=== PATIENT | female | born 1960 | race Caucasian/White ===

== ENCOUNTER → 2018-07-03 | Outpatient (CLI) | payer OTHER ==
--- NOTE | 2018-07-03 13:59 | BD ---
EXAMINATION TYPE: Axial Bone Density DATE OF EXAM: 07/03/2018 COMPARISON: NONE CLINICAL HISTORY: Height: 5 FT 2 1/4 IN Weight: 167 FRAX RISK QUESTIONS: History of Fracture in Adulthood: YES RISK FACTORS HISTORY OF: Active: YES Postmenopausal woman: AGE 49 MEDICATIONS: Thyroid Medications: YES Which medication: LEVOTHYROXINE How Lon YEARS Additional Medications: LEVOTHYROXINE, OMEPRAZOLE, RAMAPRIL, METOPROLOL, ATORVASTATIN Additional History: EXAM MEASUREMENTS: Bone mineral densitometry was performed using the [employer] [facility]. Bone mineral density as measured about the Lumbar spine is: ----- L1-L4(G/cm2): 0.983 T Score Values are as follows: ----- L2: -1.4 ----- L3: -1.0 ----- L4: -1.9 ----- L1-L4: -1.6 BASELINE Bone mineral density about the R hip (g/cm2): 0.843 Bone mineral density about the L hip (g/cm2): 0.916 T Score values are as follows: -----R Neck: -1.4 -----L Neck: -0.9 -----R Total: -1.0 -----L Total: 0.0 BASELINE IMPRESSION: Osteopenia (T Score between -2.5 and -1) at the femoral neck level in right hip and overall in the lo w back. There is slightly increased risk of fracture and the patient may be considered for treatment. Re-Screen 2-5 years. NOTE: T-SCORE=SD OF THE YOUNG ADULT MEAN.
--- NOTE | 2018-07-04 10:48 | MM ---
Reason for exam: screening (asymptomatic). Last mammogram was performed 2 years ago. History: Patient is postmenopausal and had first child at age 34. Family history of breast cancer in mother at age 54 and breast cancer in maternal aunt. Physical Findings: A clinical breast exam by your physician is recommended on an annual basis and results should be correlated with mammographic findings. MG 3D Screening Mammo W/Cad Bilateral CC and MLO view(s) were taken. Technologist: RT Tamir (R)(M) Prior study comparison: July 09, 2016, bilateral MG 3d screening mammo w/cad. May 13, 2015, bilateral MG screening mammo w CAD. There are scattered fibroglandular densities. There is no discrete abnormality. ASSESSMENT: Negative, BI-RAD 1 RECOMMENDATION: Routine screening mammogram of both breasts in 1 year.
== END | disposition home or self-care (01) ==
LOC: RADMAMWWP 09:24
PROVIDERS: ATTEND Family Medicine
DX: Z12.31 Encounter for screening mammogram for malignant neoplasm of breast (principal); M85.851 Other specified disorders of bone density and structure, right thigh; M85.88 Other specified disorders of bone density and structure, other site; Z80.3 Family history of malignant neoplasm of breast; Z78.0 Asymptomatic menopausal state
CPT/HCPCS: 77063; 77067; 77080

== ENCOUNTER → 2018-12-19 | Outpatient (CLI) | payer OTHER ==
--- NOTE | 2018-12-19 19:10 | XR ---
PROCEDURE: XR shoulder complete RT - 3V DATE AND TIME: 12/19/2018 6:15 PM CLINICAL INDICATION: PHH; S40.011A Contusion of right shoulder S43.401A spra TECHNIQUE: Department protocol COMPARISON: None FINDINGS: There is no fracture or malalignment. The soft tissues are unremarkable. IMPRESSION: NO ACUTE PROCESS.
== END | disposition home or self-care (01) ==
LOC: RADXRMAIN 17:59
PROVIDERS: ATTEND Emergency Medicine
DX: S43.401A Unspecified sprain of right shoulder joint, initial encounter (principal); S40.011A Contusion of right shoulder, initial encounter

== ENCOUNTER → 2018-12-26 | Outpatient (CLI) | payer OTHER ==
--- NOTE | 2018-12-26 16:22 | MR ---
EXAMINATION TYPE: MR shoulder RT wo con DATE OF EXAM: 12/26/2018 COMPARISON: Plain films to 04/02/2019 HISTORY: Contusion rt shoulder, rt shoulder pain TECHNIQUE: Multiplanar, multisequence imaging of the right shoulder is performed without contrast. FINDINGS: Rotator Cuff: Some minimal subacromial bursal fluid is present. Small perforation of the distal supra spinatus tendon is not excluded. No complete tear of the supraspinatus tendon is evident. No muscle o r tendon retraction is evident. Remaining rotator cuff tendons appear intact. Acromioclavicular Joint: There is hypertrophy present directed superiorly. There is downward sloping acromion which can contribute to impingement syndrome. There may be some mild narrowing of the acromi al humeral joint space. Glenohumeral Joint: Some narrowing may be present compatible some osteoarthritic degenerative change. Labrum: The labrum appears grossly intact given limitation of non-arthrogram study. Biceps Tendon: The long head of biceps is in normal location within bicipital groove. Small amount of fluid is adjacent to the long head of the biceps tendon. This could reflect some mild tendinosis. Bone marrow signal: No focal abnormal marrow signal is appreciated. Other: No additional significant abnormality is appreciated. Small amount of fluid is present within the joint space. IMPRESSION: Moderate tendinosis of the supraspinatus tendon. Small perforation is not excluded. 2. Osteoarthritic degenerative change glenohumeral junction. 3. Minimal joint fluid greater than physiologic. 4. Downward sloping acromion which can contribute to impingement syndrome. 5. Mild tendinosis of the long head of the biceps tendon.
== END ==
LOC: RADMRIMAIN 08:09
PROVIDERS: ATTEND Emergency Medicine
DX: M75.81 Other shoulder lesions, right shoulder (principal); M19.011 Primary osteoarthritis, right shoulder; M75.21 Bicipital tendinitis, right shoulder

== ENCOUNTER 2019-01-16 09:14 | Day surgery (SDC) | payer OTHER ==
[2019-01-10 11:32] VITALS: BMI 29.8
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
[~2019-01-16 09:14] MED LIST: DEXAMETHASONE SOD PHOSPHATE 10 MG/ML 1 ML VIAL IV ONE; LACTATED RINGERS 1,000 ML IV SCH; LIDOCAINE 1% 20 ML VIAL (10MG/ML) FOR IV START INTRADERMA PRN; MIDAZOLAM 2 MG/2 ML VIAL IV PRN; ONDANSETRON 4 MG/2 ML VIAL IVP ONE; SCOPOLAMINE 1.5MG/72HR PATCH TRANSDERM ONE; ceFAZolin IN SWFI 2 GM/20 ML SYRINGE IVP ONE
[2019-01-16 10:07] VITALS: TEMP 98.2
[2019-01-16] MEDS ORDERED: BUPIVACAINE (PF) 0.25% 30 ML VIAL ONE (10:30)
[2019-01-16] MEDS ORDERED: MIDAZOLAM 2 MG/2 ML VIAL ONE (10:30)
[2019-01-16] MEDS ORDERED: methylPREDNISolone ACETATE 80 MG/ML 1 ML VIAL ONE (10:30)
[2019-01-16] MEDS ORDERED: PROPOFOL 10 MG/ML 20 ML VIAL IV ONE (10:30)
[2019-01-16] MEDS ORDERED: fentaNYL (PF) 50 MCG/ML 2 ML AMP ONE (10:30)
--- NOTE | 2019-01-16 10:40 | P.OP ---
Date of Procedure: 01/16/19 Preoperative Diagnosis: Right shoulder adhesive capsulitis Postoperative Diagnosis: Same Procedure(s) Performed: Manipulation under anesthesia right shoulder with subacromial cortisone injection Anesthesia: MAC Surgeon: Pieter Berry Estimated Blood Loss (ml): 0 Pathology: none sent Condition: stable Disposition: PACU Indications for Procedure: The patient's a 58-year-old female who presents with right shoulder pain and stiffness and clinically had evidence of significant adhesive capsulitis. A discussion of the risks and benefits of manipulation under anesthesia with a subacromial cortisone injection was discussed. Informed consent was obtained. Specific risks of this procedure to include fracture, dislocation, possible recurrence of stiffness, and possible need for subsequent procedures was discussed. Operative Findings: As below Description of Procedure: The patient was brought to the recovery room, and after induction of IV sedation the right shoulder was gently manipulated. First with the arm at side , I obtained full external rotation. Moderate adhesions were encountered. I then obtained full forward elevation. Again there were moderate adhesions encountered. I felt that adequate catholic of motion at this point. The posterior shoulder was prepped with ChloraPrep. 80 mg of methylprednisolone along with 5 mL of quarter percent plain Marcaine was injected to the subacromial space with a spinal needle. The patient was then monitored until fully awake. No complications were incurred. There was no blood loss.
[2019-01-16] MEDS ORDERED: KETOROLAC 30 MG/ML 1 ML VIAL IVP ONE (10:50)
[2019-01-16] MEDS: HYDROmorphone 0.5 MG/0.5 ML SYRINGE IVP PRN ×2 (10:50→10:58)
[2019-01-16] MEDS: fentaNYL (PF) 50 MCG/ML 2 ML AMP IVP ONE ×2 (10:55→11:01)
[2019-01-16] MEDS ORDERED: ENALAPRILAT 1.25 MG/ML 1 ML VIAL IVP ONE (11:05)
[2019-01-16] MEDS ORDERED: IV FLUID CONTINUATION 1,000 ML IV ONE (11:42)
[2019-01-16] MEDS ORDERED: HYDROcodone/APAP 5-325MG 1 EACH TAB PO ONE (12:16)
[2019-01-16 13:32] VITALS: BP 141/90; PULSE 64; RESP 18
[2019-01-16] MEDS ORDERED: ONDANSETRON ODT 4 MG TAB PO ONE (13:55)
== END 2019-01-16 14:00 | disposition home or self-care (01) ==
LOC: OR 09:14
PROVIDERS: ATTEND Orthopaedic Surgery
DX: M75.01 Adhesive capsulitis of right shoulder (principal); I10 Essential (primary) hypertension; Z79.899 Other long term (current) drug therapy; Z88.0 Allergy status to penicillin; M75.81 Other shoulder lesions, right shoulder; Z87.891 Personal history of nicotine dependence
CPT/HCPCS: 23700; 20610; J2250; J1040; J1100; J2405; J3010; J1885; J2704; J1170

== ENCOUNTER → 2019-06-19 | Outpatient (CLI) | payer OTHER ==
--- NOTE | 2019-06-19 20:45 | CONS ---
CONSULTATION REASON FOR CONSULTATION: Sleep apnea. This is a pleasant 58-year-old female patient of [place] descent coming in to be investigated for sleep apnea. Recently during camping trips with her girl friend the patient has been told that she has been snoring loudly and she has been witnessed to have apneas at nighttime. She endorses the fact that she would wake up tired during the day despite averaging around 7 hours of sleep. She goes to bed around 11 p.m., wakes up at 6 a.m. in the morning, and sometimes she will sleep until 8:30 a.m., especially on weekends. 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 Nevertheless, waking up is quite hard for her and sometimes she can easily hit the snooze button and sleep a few hours more. Despite all this, she is feeling excessively fatigued and somewhat sleepy. Her current weight is stable, around 160. She drinks a cup of coffee during the day. No history of substance abuse. No history of alcoholism. No recent weight gain. No heartburn. No sleep paralysis. No hallucinations. No cataplexy. No history of any motor vehicle accident because of feeling drowsy or sleepy. PAST MEDICAL HISTORY: 1. History of atrial fibrillation back in 2016. Currently she is back to normal sinus rhythm. 2. Hyperlipidemia. 3. History of diverticulosis, post colectomy. 4. History of gastric ulcer. SURGICAL HISTORY: Surgical history includes: 1. Colectomy. 2. Oophorectomy. 3. D&C. DRUG ALLERGIES: PENICILLIN. OUTPATIENT MEDICATION LIST: Outpatient medication list includes: 1. Ramipril 5 mg p.o. daily. 2. Lipitor 20 mg p.o. daily. 3. Omeprazole 40 mg p.o. daily. 4. Oxybutynin 5 mg p.o. daily. SOCIAL HISTORY: The patient is an an ex-smoker. Drinks alcohol socially. No history of IV drugs. No history of substance abuse. FAMILY HISTORY: Father had excessive sleepiness. She thinks he had narcolepsy, although this was not officially diagnosed, as her father used to live in [place]. Mother also from complications of AUTOMOBILE SALES REPRESENTATIVE hemorrhage; she had strokes and she had carotid artery disease and she had hyperlipidemia and breast cancer. She had also a brain aneurysm. REVIEW OF SYSTEMS: Fourteen-point review of systems was done. Positive findings are all mentioned above in the history of present illness. She endorses snoring, apneas and grinding of the teeth and some restlessness at nighttime. She denies having any nocturia. Denies having any sleepwalking. No anxiety or panic attacks. No palpitations or chest pain or heartburn or nausea or vomiting or any form of altered mentation. No major issues with memory and concentration. No depression. No other psych history such as panic or PTSD or bipolar. No frequent falls or wounds. PHYSICAL EXAMINATION: VITAL SIGNS: BP is 139/92, pulse 82, respirations 16, temperature 99.1, saturation 96% on room air. Height is 5 feet 10 inches, weight 161, BMI 29.4. Neck size 13-1/2 inches. GENERAL APPEARANCE: Calm, comfortable. HEAD: Atraumatic, normocephalic. NECK: Supple. There is no JVD. No goiter or neck mass. Mallampati class IV. LUNGS: Clear to auscultation. HEART: Heart sounds are regular rate and rhythm. Normal S1, S2. No S3, S4. No murmurs. ABDOMEN: Soft, nontender. No organomegaly. EXTREMITIES: No edema. No cyanosis or clubbing. NEUROLOGIC: The patient is alert and oriented x3. There are no focal neurological deficits. PSYCHIATRY: There is no anxiety or depression. IMPRESSION: 1. Hypersomnia, under investigation. Consider obstructive sleep apnea based on history of snoring and witnessed apneas. 2. Mallampati class IV. 3. History of atrial fibrillation. Current rhythm is sinus. 4. Hyperlipidemia. 5. History of gastric ulcer. 6. Diverticulosis with previous history of colectomy. 7. History of acid reflux. PLAN: 1. Proceed with a screening polysomnogram to investigate this patient for sleep breathing disorder. 2. Encourage weight loss. 3. Sleep hygiene measures need to be further optimized, and the patient was given the appropriate recommendations. 4. Will continue to follow. MMODL / IJN: [id number] /
== END | disposition home or self-care (01) ==
LOC: SLEEP 15:45
PROVIDERS: ATTEND Internal Medicine Critical Care Medicine
DX: G47.10 Hypersomnia, unspecified (principal); E78.5 Hyperlipidemia, unspecified; Z87.891 Personal history of nicotine dependence; Z87.11 Personal history of peptic ulcer disease; Z86.79 Personal history of other diseases of the circulatory system; Z79.891 Long term (current) use of opiate analgesic; Z88.0 Allergy status to penicillin; Z90.49 Acquired absence of other specified parts of digestive tract
CPT/HCPCS: 99211

== ENCOUNTER → 2020-01-29 | Outpatient (CLI) | payer OTHER ==
--- NOTE | 2020-01-29 18:28 | PN ---
PROGRESS NOTE Roro is 58, coming in for a compliance check regarding obstructive sleep apnea. She has severe LORENE with an AHI of 33. Currently she is on CPAP. My recommendation was to start the patient on CPAP pressure of 12 cm of water and I noticed that she was started on a CPAP pressure of 8 cm of water. She is benefitting all the benefit is not absolute. Based on the compliance data, she has been averaging around 6.7 hours of CPAP use per night with CPAP use of more than 4 hours, achieving 27/30. Her leak is at 5 L/minute and AHI is down to 4. She feels that the pressure itself is somewhat low and she has an AirFit small size F30 fullface mask. REVIEW OF SYSTEMS: Fourteen-point review of system was done. Positive findings are mentioned above in history of present illness. Overall, she is benefitting from the treatment. She has less somnolent and sleepy. She has no snoring. She is waking up more alert and awake during the day. Her Anthon score is currently down to 2. The rest of the review of systems is essentially negative for now. PHYSICAL EXAMINATION: Her current vitals, temperature 97.8, pulse is 80, respirations 16, and weight is 161. Height is 5 feet 2 inches. General appearance: Calm and comfortable, no acute distress. Head is atraumatic, normocephalic. NECK: Supple. No JVD. No goiter. No neck mass. LUNGS: Clear to auscultation. HEART: Heart sounds are regular rate and rhythm. Normal S1, S2. No S3. No murmurs. ABDOMEN: Soft, nontender. No organomegaly. EXTREMITIES: No edema. No cyanosis or clubbing. NEUROLOGIC: Awake and alert. No focal neurological deficits. IMPRESSION: 1. Severe obstructive sleep apnea with an AHI of 33, currently on CPAP at a pressure of 8. 2. Chronic hypersomnia, improved. 3. Snoring, recovered. 4. Hypertension. 5. Hyperlipidemia. 6. PAF. 7. Diverticulosis. 8. Gastric cancer. PLAN: 1. I think there is a discrepancy between our prescription and the belt machine operator. I am going to increase the CPAP pressure up to 11 cm of water with a C-flex of 3. 2. I offered a medium-size AirFit F30 fullface mask. 3. Encourage continuing the CPAP therapy and the patient will see me back in a year's time in followup, earlier if needed. MMWYATTL / IJN: [id number] /
== END | disposition home or self-care (01) ==
LOC: SLEEP 15:47
PROVIDERS: ATTEND Internal Medicine Critical Care Medicine
DX: G47.33 Obstructive sleep apnea (adult) (pediatric) (principal); I10 Essential (primary) hypertension; E78.5 Hyperlipidemia, unspecified; K57.90 Diverticulosis of intestine, part unspecified, without perforation or abscess without bleeding; C16.9 Malignant neoplasm of stomach, unspecified; I48.0 Paroxysmal atrial fibrillation; Z99.89 Dependence on other enabling machines and devices

== ENCOUNTER 2020-07-23 13:07 | Emergency (ER) | payer OTHER ==
[2020-07-23 13:18] VITALS: TEMP 98.5
[2020-07-23] MEDS ORDERED: LIDOCAINE 1% INJ 10MG/ML (20 ML MDV) SQ ONE (13:55)
[2020-07-23] MEDS ORDERED: IBUPROFEN 600 MG TAB PO STA (14:03)
[2020-07-23] MEDS ORDERED: DIPH,PERTUS(ACELL)TETVAC-LF 0.5 ML VIAL IM ONE (14:03)
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
[2020-07-23 15:37] VITALS: BP 134/94; PULSE 84; RESP 16
== END 2020-07-23 14:50 | disposition home or self-care (01) ==
LOC: EC 13:07
DX: S01.511A Laceration without foreign body of lip, initial encounter (principal); I10 Essential (primary) hypertension; Z79.899 Other long term (current) drug therapy; Z88.0 Allergy status to penicillin; Z23 Encounter for immunization; Z87.891 Personal history of nicotine dependence; W51.XXXA Accidental striking against or bumped into by another person, initial encounter; Y92.219 Unspecified school as the place of occurrence of the external cause
CPT/HCPCS: 90471; 90715; 99282

== ENCOUNTER → 2020-10-28 | Outpatient (CLI) | payer OTHER ==
--- NOTE | 2020-10-28 07:51 | US ---
EXAMINATION TYPE: US kidneys/renal and bladder DATE OF EXAM: 10/28/2020 COMPARISON: NONE CLINICAL HISTORY: N39.0 UTI. Pt states recurrent UTI's EXAM MEASUREMENTS: Right Kidney: 11.4 x 5.4 x 5.2 cm Left Kidney: 11.6 x 5.1 x 4.8 cm Right Kidney: Mildly dilated renal pelvis, otherwise appeared wnl Left Kidney: Mildly dilated renal pelvis, otherwise appeared wnl Bladder: wnl Bilateral Jets seen: Yes IMPRESSION: Normal renal ultrasound
--- NOTE | 2020-10-28 13:33 | MM ---
Reason for exam: screening (asymptomatic). Last mammogram was performed 2 years and 4 months ago. History: Patient is postmenopausal and had first child at age 34. Family history of breast cancer in mother at age 54 and breast cancer in maternal aunt. Physical Findings: A clinical breast exam by your physician is recommended on an annual basis and results should be correlated with mammographic findings. MG 3D Screening Mammo W/Cad Bilateral CC and MLO view(s) were taken. Prior study comparison: July 03, 2018, bilateral MG 3d screening mammo w/cad. July 09, 2016, bilateral MG 3d screening mammo w/cad. There are scattered fibroglandular densities. There is no discrete abnormality. Benign bilateral axillary lymph nodes demonstrated. ASSESSMENT: Negative, BI-RAD 1 RECOMMENDATION: Routine screening mammogram of both breasts in 1 year.
--- NOTE | 2020-10-28 15:44 | BD ---
EXAMINATION TYPE: Axial Bone Density DATE OF EXAM: 10/28/2020 COMPARISON: 07/03/2018 CLINICAL HISTORY: Height: 62 IN Weight: 135 LBS RISK FACTORS HISTORY OF: Active: YES Diet low in dairy products/other sources of calcium: YES Postmenopausal woman: AGE 49 Take estrogen and/or progesterone medications: NOT NOW How long: TOOK CONTROL FOR 10 YEARS MEDICATIONS: Additional Medications: OMEPRAZOLE, BLOOD PRESSURE MEDS, ATORVASTATIN, OXYBUTAMIN, EXAM MEASUREMENTS: Bone mineral densitometry was performed using the [facility]. Bone mineral density as measured about the Lumbar spine is: ----- L1-L4(G/cm2): 1.040 T Score Values are as follows: ----- L2: -1.4 ----- L3: -0.3 ----- L4: -1.4 ----- L1-L4: -1.2 Bone mineral density has: Increased 5.2% since study of: 07/03/2018 Bone mineral density about the R hip (g/cm2): 0.828 Bone mineral density about the L hip (g/cm2): 0.906 T Score values are as follows: -----R Neck: -1.5 -----L Neck: -0.9 -----R Total: -1.4 -----L Total: -0.6 Bone mineral density has: Decreased -6.8% since study of: 07/03/2018 IMPRESSION: Osteopenia (T Score between -2.5 and -1). There is slightly increased risk of fracture and the patient may be considered for treatment. Re-Screen 2-5 years. NOTE: T-SCORE=SD OF THE YOUNG ADULT MEAN.
== END | disposition home or self-care (01) ==
LOC: RADMAMWWP 07:08
PROVIDERS: ATTEND Family Medicine
DX: M85.80 Other specified disorders of bone density and structure, unspecified site (principal); Z12.31 Encounter for screening mammogram for malignant neoplasm of breast; N39.0 Urinary tract infection, site not specified; Z13.820 Encounter for screening for osteoporosis
CPT/HCPCS: 76770; 77063; 77067; 77080

== ENCOUNTER → 2023-04-28 | Outpatient (CLI) | payer OTHER ==
--- NOTE | 2023-04-28 10:11 | CT ---
EXAMINATION TYPE: CT heart w calcium score DATE OF EXAM: 04/28/2023 COMPARISON: None HISTORY: Screening for cardiovascular disorder. 213.9 CT DLP: 67.2 mGycm Automated exposure control for dose reduction was used. CT CALCIUM SCORING Coronary calcium is a marker for plaque (fatty deposits) in a blood vessel or atherosclerosis (harden ing of the arteries). The presence and amount of calcium detected in a coronary artery by the CT sca n, indicates the presence and amount of atherosclerotic plaque. These calcium deposits appear years before the development of heart disease symptoms such as chest pain and shortness of breath. A calcium score is computed for each of the coronary arteries based upon the volume and density of th e calcium deposits. This can be referred to as your calcified plaque burden. It does not correspond directly to the percentage of narrowing in the artery but does correlate with the severity of the un derlying coronary atherosclerosis. PROCEDURE TECHNIQUE - Prospective Gating was used. Slice thickness: 3mm. Density threshold (HU): 130, Pixel threshold: 3, Algorithm: discrete. RESULTS Region: LM Calcium Score ([place]): 196.19 Volume (mm3): 161.77 Region: RCA Calcium Score ([place]): 93.31 Volume (mm3): 71.22 Region: LAD Calcium Score ([place]): 0 Volume (mm3): 0 Region: CX Calcium Score ([place]): 11.04 Volume (mm3): 16.56 Region: PDA Calcium Score ([place]): 0 Volume (mm3): 0 Total: Calcium Score ([place]): 300.54 Volume (mm3): 249.56 TOTAL CALCIUM SCORE: 300.54 Other: Small hiatal hernia. IMPRESSION: Calcium Score: 101-400 Implication: Definite, at least moderate atherosclerotic plaque. Risk of Coronary Artery Disease: Mild coronary artery disease highly likely, significant narrowings p ossible CALCIUM SCORE IMPLICATION RISK OF C ORONARY ARTERY DISEASE 0 No identifiable plaque Very low, generally less than 5% 1-10 Minimal identifiable plaque Very unlikely, less than 10% 11-100 Definite, at least mild atherosclerotic plaque Mild or m inimal coronary narrowings likely 101-400 Definite, at least moderate atherosclerotic plaque Mild coronary ar sayda disease highly likely, significant narrowing possible 401 or Higher Extensive atherosclerotic plaque High lik elihood of at least one significant coronary narrowing
== END | disposition home or self-care (01) ==
LOC: RADCTMAIN 08:48
PROVIDERS: ATTEND Family Medicine
DX: Z13.6 Encounter for screening for cardiovascular disorders (principal); I25.10 Atherosclerotic heart disease of native coronary artery without angina pectoris
CPT/HCPCS: 75571

== ENCOUNTER → 2023-07-21 | Outpatient (CLI) | payer OTHER ==
--- NOTE | 2023-07-21 11:12 | CA ---
Exercise Stress Test Report Name: Roro Craig Exam Date: 07/21/2023 09:34 Exam Location: [facility] Ht (in): 62 Wt (lb): 150 BSA: 1.69 Ordering Phys: Ritchie Murillo DO Referring Phys: MURILLO Technologist: Jeremie Thompson Age: 62 Gender: F : 1960 Procedure CPT: Indications: E83.52 hypercalcemia ICD-10 Codes: Patient History: Hypertension and calcification on x-ray Medications: Meds past 24 hrs: Pretest Chest Pain: STRESS TEST Mauro Protocol Exercise Duration (min:sec): 09:[address] Depressions (mm): Angina Score: Bailey Score: Resting HR (bpm): 65 Peak HR (bpm): 153 Resting BP (mmHg): 148 / 83 Peak BP (mmHg): 200 / 92 MPHR: 157 Target HR: 133 % MPHR: 97 METS: 10.3 Total Dose: Peak Dose: Atropine: Double Product: 78069 BP Response: Stress Termination: Reached target heart rate Stress Symptoms: No chest pain or symptoms Stress Summary: ECG ANALYSIS Resting ECG: Normal sinus rhythm with T-wave inversions in inferolateral leads heart rate 66 beats a minute. Stress ECG: Nondiagnostic for ischemia due to resting T-wave changes. There were no ectopic beats or sustained arrhythmias. CONCLUSIONS Good excess tolerance for patient's age achieving 10.3 METS Resting ECG shows normal sinus rhythm with T-wave inversions in inferolateral leads. Nondiagnostic stress ECG due to baseline changes Nondiagnostic treadmill stress test Dr Wilner Reyes (Electronically Signed) Final Date: 21 July 2023 11:12
== END | disposition home or self-care (01) ==
LOC: RADNMMAIN 08:35
PROVIDERS: ATTEND Family Medicine
DX: E83.52 Hypercalcemia (principal); I10 Essential (primary) hypertension
CPT/HCPCS: 93017

== ENCOUNTER → 2025-05-16 | Outpatient (CLI) | payer MEDICARE ==
--- NOTE | 2025-05-16 13:20 | MM ---
Reason for Exam: Screening (asymptomatic). Last mammogram was performed 2 year(s) and 4 month(s) ago. Patient History: Menarche at age 12. First Full-Term at age 34. Late child-bearing (after 29). Left ovary removed at age 45. Postmenopausal. Patient has history of breast feeding. Maternal aunt had breast cancer. Mother had breast cancer, age 54. Risk Values: Alma Delia 5 year model risk: 3.3%. NCI Lifetime model risk: 12.3%. Prior Study Comparison: 07/09/2016 Bilateral Screening Mammogram, [facility]. 07/03/2018 Bilateral Screening Mammogram, [facility]. 10/28/2020 Bilateral Screening Mammogram, [facility]. 01/25/2023 Bilateral MG 3D screening mammo w/cad, [facility]. Tissue Density: There are scattered areas of fibroglandular density. Findings: Analyzed By CAD. There is no suspicious group of microcalcifications or new suspicious mass in either breast. Overall Assessment: Negative, BI-RAD 1 Management: Screening Mammogram of both breasts in 1 year. See note below in regards to the patient's increased 5 year Alma Delia score. Patient should continue monthly self-breast exams. A clinical breast exam by your physician is recommended on an annual basis. This exam should not preclude additional follow-up of suspicious palpable abnormalities. Note on Alma Delia scores and lifetime risk: 1. A Alma Delia score greater than 3% is considered moderate risk. If this is the case, consider specialist referral to assess eligibility for a risk reducing agent. 2. If overall lifetime risk for the development of breast cancer is 20% or higher, the patient may qualify for future screening with alternating mammogram and breast MRI. [facility], , 05/16/2025 1:18 PM. Electronically signed and approved by: Tahira Mckeon M.D. Radiologist
== END | disposition home or self-care (01) ==
LOC: RADMAMWWP 12:57
PROVIDERS: ATTEND Family Medicine
DX: Z12.31 Encounter for screening mammogram for malignant neoplasm of breast (principal); R92.323 Mammographic fibroglandular density, bilateral breasts; Z78.0 Asymptomatic menopausal state; Z80.3 Family history of malignant neoplasm of breast
CPT/HCPCS: 77063; 77067